=== PATIENT | female | born 2000 | race Caucasian/White ===

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

== ENCOUNTER → 2020-02-25 | Outpatient (REF) | payer BC, OTHER | LOC: M WUC 13:48 | PROVIDERS: ATTEND Physician Assistant | DX: N39.0 Urinary tract infection, site not specified (principal) ==

== ENCOUNTER → 2020-06-26 | Outpatient (REF) | payer BC, OTHER | LOC: M WUC 09:36 | PROVIDERS: ATTEND Physician Assistant | DX: N39.0 Urinary tract infection, site not specified (principal) ==

== ENCOUNTER → 2020-10-04 | Outpatient (REF) | payer OTHER ==
[2020-10-05 11:42] LABS: CHLAMYDIA DNA AMPLIFICATION NEGATIVE (NEGATIVE); GC DNA AMPLIFICATION NEGATIVE (NEGATIVE)
== END ==
LOC: M WUC 09:36
PROVIDERS: ATTEND Physician Assistant
DX: Z11.3 Encounter for screening for infections with a predominantly sexual mode of transmission (principal)

== ENCOUNTER → 2021-01-06 | Outpatient (REF) | payer OTHER ==
[2021-01-06 18:02] LABS: CHLAMYDIA DNA AMPLIFICATION NEGATIVE (NEGATIVE); GC DNA AMPLIFICATION NEGATIVE (NEGATIVE)
== END ==
LOC: M LAB REF 15:38
PROVIDERS: ATTEND Physician Assistant
DX: R30.0 Dysuria (principal)

== ENCOUNTER → 2021-03-31 | Outpatient (REF) | payer OTHER ==
[2021-03-31 17:03] LABS: GC DNA AMPLIFICATION NEGATIVE (NEGATIVE)
== END ==
LOC: M WUC 15:20
PROVIDERS: ATTEND Physician Assistant
DX: R30.0 Dysuria (principal)

== ENCOUNTER → 2021-05-02 | Outpatient (CLI) | payer OTHER | LOC: M OUTALCOH 08:59 | PROVIDERS: ATTEND Psychiatry & Neurology Psychiatry | DX: F10.10 Alcohol abuse, uncomplicated (principal) ==

== ENCOUNTER 2021-05-11 13:00 | Outpatient (RCR) | payer OTHER | END 2021-05-17 | LOC: M OUTALCOH 13:00 | PROVIDERS: ATTEND Psychiatry & Neurology Psychiatry | DX: F10.10 Alcohol abuse, uncomplicated (principal); Z72.0 Tobacco use ==

== ENCOUNTER 2021-06-14 15:20 | Outpatient (RCR) | payer OTHER | END 2021-06-16 | LOC: M OUTALCOH 15:20 | PROVIDERS: ATTEND Psychiatry & Neurology Psychiatry | DX: F10.10 Alcohol abuse, uncomplicated (principal); Z72.0 Tobacco use ==

== ENCOUNTER → 2022-07-10 | Outpatient (REF) | payer OTHER | LOC: M LAB REF 12:14 | PROVIDERS: ATTEND Physician Assistant Medical | DX: B34.9 Viral infection, unspecified (principal) ==

== ENCOUNTER → 2024-02-28 | Outpatient (CLI) | payer OTHER | LOC: M LAB 02-27 13:39 | PROVIDERS: ATTEND Nurse Practitioner Family | DX: Z32.01 Encounter for pregnancy test, result positive (principal) ==

== ENCOUNTER 2025-03-17 13:53 | Outpatient (CLI) | payer BC ==
[2025-03-17] VITALS (11 sets, daily range): BP systolic 110–161; BP diastolic 57–100
[~2025-03-17] VITALS: Ht 170.2 cm; Wt 74.0 kg
[2025-03-17] MEDS ORDERED: TUMS750C5 PO (14:19)
[2025-03-17] MEDS ORDERED: HOME MED LIST COMPLETE! XX SCH (14:20)
[2025-03-17 15:08] LABS: TOTAL PROTEIN,RANDOM URINE 83.8 MG/DL (0.0-14.0)
[2025-03-17 15:11] LABS: PLATELET COUNT, AUTOMATED 166 10^3/uL (150-450)
[2025-03-17 15:38] LABS: LDH LACTATE DEHYDROGENASE 212 U/L (120-246)
[2025-03-17 15:39] LABS: ALT/SGPT 179 U/L (7.0-40); AST/SGOT 184 U/L (<34); CREATININE FOR GFR 0.68 MG/DL (0.55-1.30); GLOMERULAR FILTRATION RATE > 90.0 (>60)
[2025-03-17] MEDS: BETAMETHASONE SOLUSPAN 6 MG/ML 5 ML VIAL IM ONE (16:08)
[2025-03-17] MEDS: FAMOTIDINE 20 MG TAB PO ONE (16:08)
[2025-03-17 21:43] LABS: BASO # 0.0 10^3/uL (0.0-0.2); BASO % 0.2 % (0.0-1.0); EOS # 0.0 10^3/uL (0.0-0.5); EOS % 0.0 % (0.0-3.0); LYMPH # 0.7 10^3/uL (1.5-5.0); LYMPH % 8.4 % (24.0-44.0); MONO # 0.1 10^3/uL (0.0-0.8); MONO % 1.6 % (2.0-8.0); NEUTROPHILS # 7.4 10^3/uL (1.5-8.5); NEUTROPHILS % 89.4 % (36.0-66.0); PLATELET COUNT, AUTOMATED 160 10^3/uL (150-450)
[2025-03-17 22:32] LABS: HIV 1&2 SCREEN NEGATIVE (NEGATIVE)
[2025-03-17 22:40] LABS: HEPATITIS C VIRUS ABY INDEX 0.03 INDEX (<0.8)
[2025-03-17 22:48] LABS: ALT/SGPT 188 U/L (7.0-40); AST/SGOT 190 U/L (<34); CALCIUM LEVEL 8.2 MG/DL (8.5-10.1); CARBON DIOXIDE LEVEL 25 MMOL/L (20-31); CHLORIDE LEVEL 102 MMOL/L (98-107); CREATININE FOR GFR 0.68 MG/DL (0.55-1.30); GLOMERULAR FILTRATION RATE > 90.0 (>60); POTASSIUM SERUM 3.3 MMOL/L (3.5-5.1); SODIUM LEVEL 140 MMOL/L (136-145)
[2025-03-18] VITALS (8 sets, daily range): BP systolic 110–145; BP diastolic 55–94
[2025-03-18] MEDS: FAMOTIDINE 20 MG TAB PO ONE (05:52)
[2025-03-18 06:44] LABS: PLATELET COUNT, AUTOMATED 211 10^3/uL (150-450)
[2025-03-18 07:16] LABS: ALT/SGPT 198 U/L (7.0-40); AST/SGOT 205 U/L (<34); CALCIUM LEVEL 8.4 MG/DL (8.5-10.1); CARBON DIOXIDE LEVEL 25 MMOL/L (20-31); CHLORIDE LEVEL 100 MMOL/L (98-107); CREATININE FOR GFR 0.66 MG/DL (0.55-1.30); GLOMERULAR FILTRATION RATE > 90.0 (>60); POTASSIUM SERUM 3.5 MMOL/L (3.5-5.1); SODIUM LEVEL 138 MMOL/L (136-145)
[2025-03-18] MEDS: BETAMETHASONE SOLUSPAN 6 MG/ML 5 ML VIAL IM ONE (16:10)
[2025-03-18] MEDS ORDERED: URSO300C3 PO (16:17)
[2025-03-18] MEDS ORDERED: PEPC1TAB5 PO (16:18)
[2025-03-27 14:37] LABS: CHENODEOXYCHOLIC ACID 37.9 umol/L (< OR = 3.1); CHOLACID 192.0 umol/L (< OR = 1.8); DEOXYCHOLIC ACID 3.8 umol/L (< OR = 2.4)
== END 2025-03-18 16:25 | disposition home or self-care (01) ==
LOC: M LDO 13:53
PROVIDERS: ATTEND Specialist
DX: O14.93 Unspecified pre-eclampsia, third trimester (principal); Z3A.31 31 weeks gestation of pregnancy; Z86.59 Personal history of other mental and behavioral disorders
CPT/HCPCS: 36415; 59025; 76811; 76820; 80053; 82247; 82542; 82570; 83615; 84156; 84450; 84460; 84550; 85025; 85027; 86762; 86780; 86803; 86850; 86900; 86901; 87340; 87389; 96372; G0463; J0702

== ENCOUNTER 2025-03-20 09:51 | Outpatient (CLI) | payer BC ==
[~2025-03-20] VITALS: Ht 170.2 cm; Wt 73.8 kg
[~2025-03-20 09:51] MED LIST changes: +PEPC1TAB5 PO; +TUMS750C5 PO; +URSO300C3 PO
[2025-03-20 10:05] VITALS: BP 140/89
[2025-03-20] MEDS ORDERED: HOME MED LIST COMPLETE! XX SCH (10:15)
[2025-03-20 10:27] VITALS: BP 134/86
== END 2025-03-20 10:45 | disposition home or self-care (01) ==
LOC: M LDO 09:51
PROVIDERS: ATTEND Advanced Practice Midwife
DX: O28.8 Other abnormal findings on antenatal screening of mother (principal); O40.3XX9 Polyhydramnios, third trimester, other fetus; O09.33 Supervision of pregnancy with insufficient antenatal care, third trimester; O14.93 Unspecified pre-eclampsia, third trimester; Z3A.34 34 weeks gestation of pregnancy
CPT/HCPCS: 59025; G0463

== ENCOUNTER 2025-03-23 16:13 | Outpatient (CLI) | payer BC ==
[~2025-03-23] VITALS: Ht 170.2 cm; Wt 74.8 kg
[2025-03-23 16:30] VITALS: BP 144/96
[2025-03-23] MEDS ORDERED: PRENTAB9 PO (16:31)
[2025-03-23 16:41] VITALS: BP 147/96
[2025-03-23 16:51] VITALS: BP 147/95
[2025-03-23 17:02] VITALS: BP 141/97
[2025-03-23 17:02] LABS: PLATELET COUNT, AUTOMATED 178 10^3/uL (150-450)
[2025-03-23 17:13] LABS: TOTAL PROTEIN,RANDOM URINE 43.6 MG/DL (0.0-14.0)
[2025-03-23 17:21] LABS: LDH LACTATE DEHYDROGENASE 187 U/L (120-246)
[2025-03-23 17:22] LABS: ALT/SGPT 114 U/L (7.0-40); AST/SGOT 73 U/L (<34); CREATININE FOR GFR 0.68 MG/DL (0.55-1.30); GLOMERULAR FILTRATION RATE > 90.0 (>60)
== END 2025-03-23 18:10 | disposition home or self-care (01) ==
LOC: M LDO 16:13
PROVIDERS: ATTEND Advanced Practice Midwife
DX: O14.93 Unspecified pre-eclampsia, third trimester (principal); O40.3XX0 Polyhydramnios, third trimester, not applicable or unspecified; O09.33 Supervision of pregnancy with insufficient antenatal care, third trimester; Z3A.34 34 weeks gestation of pregnancy
CPT/HCPCS: 36415; 59025; 76815; 82247; 82570; 83615; 84156; 84450; 84460; 84550; 85027; G0463

== ENCOUNTER → 2025-03-27 | Outpatient (REF) | payer BC ==
[~2025-03-27] MED LIST changes: +PRENTAB9 PO
== END ==
LOC: M PLALAB 11:29
PROVIDERS: ATTEND Advanced Practice Midwife
DX: O14.90 Unspecified pre-eclampsia, unspecified trimester (principal)